=== PATIENT | male | born 1950 | race Caucasian/White ===

== ENCOUNTER 2017-04-01 06:02 | Day surgery (SDC) | payer MEDICARE, BC ==
--- NOTE | ~2017-04-01 | EGD ---
EGD REPORT [facility] [address] [place] [id number] NAME: RAUL MOJICA : [birth year] STATUS : REG [facility]#: [id number] AGE: 67 ADM/REG DATE : 04/01/17 MR#: [id number] REPORT SERV DATE: 04/01/17 DICTATED BY: JENNIFER TORRES DATE: 04/01/17 REPORT STATUS : Draft TRANSCRIBED BY: [facility] DATE: 04/01/17 [facility] Patient Name: Raul Mojica Date of : 1950 Attending MD: JENNIFER TORRES MD Procedure Date No Time: 04/01/2017 Procedure: Colonoscopy Indications: High risk colon cancer surveillance: Personal history of colonic polyps; last exam 5 years ago. Patient Profile: Informed consent was obtained from the patient by me prior to the procedure. Risks, benefits, and alternatives were discussed including the risk of bleeding, perforation, infection, reaction to medicine, missed lesion, and cardiopulmonary complications. Referring MD: Sawyer Stacy Medicines: Monitored Anesthesia Care Complications: No immediate complications. Procedure: Pre-Anesthesia Assessment: - ASA Grade Assessment: II - A patient with mild systemic disease. After I obtained informed consent, the scope was passed under direct vision. Throughout the procedure, the patient's blood pressure, pulse, and oxygen saturations were monitored continuously. The PCF [id number] was introduced through the anus and advanced to the cecum, identified by appendiceal orifice and ileocecal valve. The colonoscope was slowly withdrawn with careful examination all mucosal surfaces including specific attention around flexures and tip deflection behind folds; retroflexion performed in rectum. The colonoscopy was performed without difficulty. The patient tolerated the procedure well. The quality of the bowel preparation was adequate. The ileocecal valve, appendiceal orifice and rectum were photographed. Findings: A sessile polyp was found at the hepatic flexure. The polyp was 5 mm in size. The polyp was removed with a cold biopsy forceps. Resection and retrieval were complete. Five flat polyps were found in the sigmoid colon. The polyps were 3 to 5 mm in size. These polyps were removed with a cold biopsy forceps. Resection and retrieval were complete. A few small-mouthed diverticula were found in the sigmoid colon. Impression: - One 5 mm polyp at the hepatic flexure. Resected and EGD REPORT [address] [address] NAME: RAUL MOJICA : [birth year] STATUS : REG [facility]#: [id number] AGE: 67 ADM/REG DATE : 04/01/17 MR#: [id number] REPORT SERV DATE: 04/01/17 DICTATED BY: JENNIFER TORRES DATE: 04/01/17 REPORT STATUS : Draft TRANSCRIBED BY: [employer] DATE: 04/01/17 retrieved. - Five 3 to 5 mm polyps in the sigmoid colon. Resected and retrieved. - Diverticulosis in the sigmoid colon. Recommendation: - Patient has a contact number available for emergencies. The signs and symptoms of potential delayed complications were discussed with the patient. Return to normal activities tomorrow. Written discharge instructions were provided to the patient. - Regular diet. - Continue present medications. - Await pathology results. - Repeat colonoscopy for surveillance based on pathology results. Procedure Code(s): --- Professional --- 68223, Colonoscopy, flexible, proximal to splenic flexure; with biopsy, single or multiple Diagnosis Code(s): --- Professional --- D12.5, Benign neoplasm of sigmoid colon D12.3, Benign neoplasm of transverse colon K57.30, Diverticulosis of large intestine without perforation or abscess without bleeding Z86.010, Personal history of colonic polyps CPT copyright 2013 [employer]. All rights reserved. The codes documented in this report are preliminary and upon disease education specialist review may be revised to meet current compliance requirements. JENNIFER TORRES MD 04/01/2017 7:38 AM This report has been signed electronically. Number of Addenda: 0 Note Initiated On: 04/01/2017 6:50 AM Scope Withdrawal Time 0 hours 14 minutes 25 seconds [id number] [id number]
[~2017-04-01 06:02] MED LIST: ARIMIDEX1 PO; ASAB PO; CRESTOR10 PO; GLUCOPHXR7 PO; LEVOTHYROXIN50 MCG PO; ZOL100 PO; ZOL50 PO
[2017-07-08] MEDS ORDERED: CIALIS5 MG PO (09:16)
[2017-07-08] MEDS ORDERED: LOP25 PO (09:17)
[2017-07-08] MEDS ORDERED: LAM250 PO (09:17)
[2017-07-08] MEDS ORDERED: CRESTOR20 MG PO (09:17)
[2017-07-08] MEDS ORDERED: ASAB PO (09:27)
[2017-07-09] MEDS ORDERED: ZESTRIL5 MG PO (10:43)
== END 2017-04-01 23:59 | disposition home or self-care (01) ==
LOC: DMU 06:02
PROVIDERS: Internal Medicine Gastroenterology
PROC: 0DBN8ZX Excision of Sigmoid Colon, Via Natural or Artificial Opening Endoscopic, Diagnostic (ICD-10-PCS; 2017-04-01)
PROC: 0DBK8ZX Excision of Ascending Colon, Via Natural or Artificial Opening Endoscopic, Diagnostic (ICD-10-PCS; principal; 2017-04-01 07:00)
DX: Z12.11 Encounter for screening for malignant neoplasm of colon (principal); D12.3 Benign neoplasm of transverse colon; K63.5 Polyp of colon; K57.30 Diverticulosis of large intestine without perforation or abscess without bleeding; G47.33 Obstructive sleep apnea (adult) (pediatric); E11.9 Type 2 diabetes mellitus without complications; E66.01 Morbid (severe) obesity due to excess calories; E78.5 Hyperlipidemia, unspecified; Z79.82 Long term (current) use of aspirin; Z79.899 Other long term (current) drug therapy; Z86.010 Personal history of colon polyps; Z99.89 Dependence on other enabling machines and devices; Z96.651 Presence of right artificial knee joint; Z96.611 Presence of right artificial shoulder joint; Z90.89 Acquired absence of other organs; Z90.49 Acquired absence of other specified parts of digestive tract; Z98.890 Other specified postprocedural states
CPT/HCPCS: 82962; 88305